=== PATIENT | female | born 1975 | race Caucasian/White ===

== ENCOUNTER 2019-11-14 10:08 | Day surgery (SDC) | payer OTHER, SELFPAY ==
[~2019-11-14] VITALS: Ht 160 cm; Wt 55.3 kg
[2019-11-14 10:33] LABS: BASOPHILS # (AUTO) 0.1 K/uL (0.00-0.22); EOSINOPHILS # (AUTO) 0.1 K/uL (0-0.4); HEMATOCRIT 35.7 % (36-48); HEMOGLOBIN 11.5 g/dL (12.0-16.0); LYMPHOCYTES # (AUTO) 1.5 K/uL (2.5-16.5); LYMPHOCYTES % (AUTO) 21.8 % (20.5-51.1); MEAN CORPUSCULAR HEMOGLOBIN 28 pg (27-31); MEAN CORPUSCULAR HGB CONC 32 g/dL (33-37); MEAN CORPUSCULAR VOLUME 86.8 fL (80-94); MONOCYTES # (AUTO) 0.5 K/uL (0.8-1.0); MONOCYTES % (AUTO) 6.8 % (1.7-9.3); NEUTROPHILS # (AUTO) 4.8 K/uL (1.8-7.7); NEUTROPHILS % (AUTO) 68.4 % (42.2-75.2); PLATELET COUNT (AUTO) 284 K/uL (140-450); RED BLOOD CELL COUNT(AUTO) 4.11 MIL/uL (4.20-5.40); RED CELL DISTRIBUTION WIDTH 13.2 % (11.6-13.7)
[2019-11-14 10:44] LABS: ANION GAP 12.6 (8-16); CARBON DIOXIDE 28.1 mmol/L (21-32); CREATININE 0.9 mg/dL (0.6-1.3); POTASSIUM 3.7 mmol/L (3.5-5.1)
[2019-11-14 10:50] LABS: ALBUMIN 3.6 g/dL (3.4-5.0); TOTAL BILIRUBIN 0.3 mg/dL (0.0-1.0)
[2019-11-14] MEDS ORDERED: LACTATED RINGERS 1,000 ML IV SCH (12:47)
[2019-11-14] MEDS ORDERED: HYDROmorphone 1 MG/ML AMP IVP PRN (12:50)
[2019-11-14] MEDS ORDERED: MEPERIDINE 25 MG/ML SYR IVP PRN (12:50)
[2019-11-14] MEDS ORDERED: ONDANSETRON 4 MG/2 ML VIAL IVP PRN (12:50)
== END 2019-11-14 14:38 | disposition home or self-care (01) ==
LOC: MDS 10:08 → MMU 10:08 → MDS 14:38
PROVIDERS: ATTEND Obstetrics & Gynecology
DX: N83.202 Unspecified ovarian cyst, left side (principal); Z53.8 Procedure and treatment not carried out for other reasons
CPT/HCPCS: 36415; 80053; 81025; 85025; 93005; J7120

== ENCOUNTER 2019-11-23 10:18 | Day surgery (SDC) | payer OTHER, SELFPAY ==
[~2019-11-23] VITALS: Ht 160 cm; Wt 56.7 kg
[2019-11-23] MEDS ORDERED: LIDOCAINE 1% 500 MG/50 ML VIAL ONE (12:43)
[2019-11-23] MEDS ORDERED: BUPIVACAINE MPF 0.25% 10 ML VIAL INJ ONE (12:43)
[2019-11-23] MEDS ORDERED: SEVOFLURANE 250 ML BTL INH ONE (12:48)
[2019-11-23] MEDS ORDERED: GLYCOPYRROLATE 0.2 MG/ML VIAL ONE (12:48)
[2019-11-23] MEDS ORDERED: fentaNYL 0.05 MG/ML VIAL ONE (12:48)
[2019-11-23] MEDS ORDERED: ROCURONIUM 50 MG/5 ML VIAL IV ONE (12:48)
[2019-11-23] MEDS ORDERED: PROPOFOL 200 MG/20 ML VIAL IV ONE (12:48)
[2019-11-23] MEDS ORDERED: NEOSTIGMINE 1:1000 10 MG/10 ML VIAL ONE (12:48)
[2019-11-23] MEDS ORDERED: ONDANSETRON 4 MG/2 ML VIAL ONE (12:48)
[2019-11-23] MEDS ORDERED: DEXAMETHASONE 10 MG/ML VIAL ONE (12:48)
[2019-11-23] MEDS ORDERED: ONDANSETRON 4 MG/2 ML VIAL IVP PRN (13:45)
[2019-11-23] MEDS: HYDROmorphone PFS 2 MG/ML SYR ONE ×2 (13:45→13:55)
[2019-11-23] MEDS ORDERED: LACTATED RINGERS 1,000 ML IV SCH (13:45)
[2019-11-23] MEDS: HYDROmorphone 1 MG/ML AMP IVP PRN ×2 (14:45→14:55)
== END 2019-11-23 16:00 | disposition home or self-care (01) ==
LOC: MDS 10:18 → MMU 10:31 → MDS 16:00
PROVIDERS: ATTEND Obstetrics & Gynecology
DX: N83.202 Unspecified ovarian cyst, left side (principal); N73.6 Female pelvic peritoneal adhesions (postinfective)
CPT/HCPCS: 49329; 81025; J1100; J1170; J2001; J2405; J2704; J2710; J3010; J3490; J7120